=== PATIENT | male | born 1980 | race Caucasian/White ===

== ENCOUNTER 2017-01-25 18:58 | Emergency (ER) | payer OTHER ==
[~2017-01-25] VITALS: Ht 185.4 cm; Wt 117.2 kg
[~2017-01-25 18:58] MED LIST: ATENOLOL50 MG PO; BACTRIM DS1 TAB PO; CLEOCIN300 MG PO; CLINDAMYCIN300 M1 PO; FLEXERIL OR; LISINOPRIL10 MG PO; LORTAB 10-325 M1 TAB PO; LORTAB 5/3255 MG PO; NAPROSYN500 MG OR; NAPROSYN500 MG PO; NO MEDS; PRILOSEC10 MG PO
[2017-01-25] MEDS ORDERED: TORADOL PO (20:00)
[2017-01-25 20:27] VITALS: BP 125/78
== END 2017-01-25 20:27 | disposition home or self-care (01) | DRG 563 ==
LOC: ED 18:58
DX: S93.601A Unspecified sprain of right foot, initial encounter (principal); X50.1XXA Overexertion from prolonged static or awkward postures, initial encounter; Y93.01 Activity, walking, marching and hiking; Y92.009 Unspecified place in unspecified non-institutional (private) residence as the place of occurrence of the external cause

== ENCOUNTER 2017-04-13 22:44 | Emergency (ER) | payer SELFPAY ==
[~2017-04-13] VITALS: Ht 185.4 cm; Wt 108.4 kg
[~2017-04-13 22:44] MED LIST changes: +TORADOL PO
[2017-04-13] MEDS ORDERED: ANUSOL-HC25 MG RE (23:21)
[2017-04-13] MEDS ORDERED: XYLOCAINE G5 ML/TUBE EX (23:21)
[2017-04-13] MEDS ORDERED: MIRALAX3350 N1 PO (23:22)
[2017-04-13] MEDS ORDERED: LORTAB 1010 MG PO (23:22)
[2017-04-13 23:53] VITALS: BP 140/93
== END 2017-04-13 23:53 | disposition home or self-care (01) | DRG 395 ==
LOC: ED 22:44
DX: K64.9 Unspecified hemorrhoids (principal); F17.210 Nicotine dependence, cigarettes, uncomplicated; I10 Essential (primary) hypertension

== ENCOUNTER 2018-12-11 15:24 | Emergency (ER) | payer BC ==
[~2018-12-11] VITALS: Ht 185.4 cm; Wt 119.0 kg
[~2018-12-11 15:24] MED LIST changes: +ANUSOL-HC25 MG RE; +LORTAB 1010 MG PO; +MIRALAX3350 N1 PO; +XYLOCAINE G5 ML/TUBE EX
[2018-12-11 17:10] VITALS: BP 139/79
== END 2018-12-11 17:10 | disposition home or self-care (01) | DRG 563 ==
LOC: ED 15:24
DX: S92.512A Displaced fracture of proximal phalanx of left lesser toe(s), initial encounter for closed fracture (principal); I10 Essential (primary) hypertension; F17.200 Nicotine dependence, unspecified, uncomplicated; W22.09XA Striking against other stationary object, initial encounter; Y92.009 Unspecified place in unspecified non-institutional (private) residence as the place of occurrence of the external cause

== ENCOUNTER 2019-03-23 16:42 | Emergency (ER) | payer BC ==
[~2019-03-23] VITALS: Ht 185.4 cm; Wt 112.7 kg
[2019-03-23] MEDS ORDERED: TRAMADOL HYDROC50 MG PO ×2 (18:45→18:46)
[2019-03-23 18:51] VITALS: BP 145/91
== END 2019-03-23 19:01 | disposition home or self-care (01) | DRG 605 ==
LOC: ED 16:42
DX: S80.12XA Contusion of left lower leg, initial encounter (principal); I10 Essential (primary) hypertension; W20.8XXA Other cause of strike by thrown, projected or falling object, initial encounter; Y93.89 Activity, other specified

== ENCOUNTER 2020-02-10 13:34 | Emergency (ER) | payer BC ==
[~2020-02-10] VITALS: Ht 185.4 cm; Wt 110.0 kg
[~2020-02-10 13:34] MED LIST changes: +TRAMADOL HYDROC50 MG PO
[2020-02-10] MEDS ORDERED: ULTRAM50 MG PO (15:26)
[2020-02-10] MEDS ORDERED: MOTRIN800 MG PO (15:26)
[2020-02-10] MEDS ORDERED: FLEXERIL5 M1 PO (15:26)
[2020-02-10 15:33] VITALS: BP 140/92
== END 2020-02-10 15:38 | disposition home or self-care (01) | DRG 563 ==
LOC: ED 13:34
DX: S39.012A Strain of muscle, fascia and tendon of lower back, initial encounter (principal); I10 Essential (primary) hypertension; F17.210 Nicotine dependence, cigarettes, uncomplicated; X58.XXXA Exposure to other specified factors, initial encounter; Y93.83 Activity, rough housing and horseplay

== ENCOUNTER 2020-06-15 20:47 | Emergency (ER) | payer BC ==
[~2020-06-15 20:47] MED LIST changes: +FLEXERIL5 M1 PO; +MOTRIN800 MG PO; +ULTRAM50 MG PO
== END 2020-06-15 21:10 | disposition home or self-care (01) | DRG 951 ==
LOC: ED 20:47 → LWOBS 21:10
DX: Z53.21 Procedure and treatment not carried out due to patient leaving prior to being seen by health care provider (principal)

== ENCOUNTER 2020-06-23 00:43 | Emergency (ER) | payer BC ==
[~2020-06-23] VITALS: Ht 182.9 cm; Wt 121.6 kg
[2020-06-23 01:43] LABS: HEMOGLOBIN 15.3 g/dl (14.0-18.0); IMMATURE GRANULOCYTES 0.9 % (0.0-5.0); MEAN CELL VOLUME 94.2 fL CALC (80.0-100.0); MEAN CORPUSCULAR HGB 30.7 pG CALC (26.0-32.0); MEAN CORPUSCULAR HGB CONC 32.6 g/dL CAL (32.0-36.0); NEUT# 4.21 thou/uL (1.82-7.42); RED BLOOD COUNT 4.99 mill/uL (4.70-6.10); RED CELL DISTRI WIDTH 12.5 % (11.5-15.5)
[2020-06-23 01:58] LABS: ALBUMIN 4.4 g/dL (3.2-5.0); ALKALINE PHOSPHATASE 44 u/l (38-126); AMYLASE 57 u/l (30-110); ANION GAP 11 (6-22 (CALC)); BILIRUBIN, TOTAL 0.5 mg/dL (0.0-1.4); BUN 17 mg/dL (9-20); BUN/CREATININE RATIO 19 (12-20 (CALC)); CARBON DIOXIDE 28 mmol/l (22-30); CHLORIDE 102 mmol/l (95-108); CREATININE 0.9 mg/dL (0.7-1.3); GFR > 60 ML/MIN (>=60 (CALC)); GFR FOR AFR.AMER. > 60 ML/MIN (>=60 (CALC)); LIPASE 92 u/l (23-300); SGOT/AST 23 u/l (17-59); SODIUM 137 mmol/l (137-146); TOTAL PROTEIN 7.4 g/dL (6.3-8.2)
[2020-06-23 02:10] LABS: MYOGLOBIN 29 ng/mL (0 - 121)
[2020-06-23 02:15] LABS: URINE BILIRUBIN - DIPSTICK NEGATIVE (NEGATIVE); URINE BLOOD DIPSTICK NEGATIVE (NEGATIVE); URINE COLOR YELLOW; URINE GLUCOSE - DIPSTICK NEGATIVE (NEGATIVE); URINE KETONE NEGATIVE (NEGATIVE); URINE LEUK ESTERASE NEGATIVE (NEGATIVE); URINE NITRITE - DIPSTICK NEGATIVE (Negative); URINE PROTEIN - DIPSTICK NEGATIVE (NEG-TRACE); URINE SPECIFIC GRAVITY 1.025
[2020-06-23] MEDS ORDERED: CYCLOBENZAPRINE10 MG PO (03:31)
[2020-06-23] MEDS ORDERED: NAPROXEN500 MG PO (03:31)
[2020-06-23 03:40] VITALS: BP 148/79
== END 2020-06-23 03:40 | disposition home or self-care (01) | DRG 556 ==
LOC: ED 00:43
PROVIDERS: Emergency Medicine
DX: M79.10 Myalgia, unspecified site (principal); N28.89 Other specified disorders of kidney and ureter; I10 Essential (primary) hypertension; F17.210 Nicotine dependence, cigarettes, uncomplicated
CPT/HCPCS: Q9967; S0164

== ENCOUNTER 2021-05-23 04:25 | Observation (INO) | payer BC ==
[~2021-05-23] VITALS: Ht 185.4 cm; Wt 123.0 kg
[~2021-05-23 04:25] MED LIST changes: +CYCLOBENZAPRINE10 MG PO; +NAPROXEN500 MG PO
--- NOTE | 2021-05-23 04:26 | NUR ---
AMBULATED TO ROOM
[2021-05-23 04:47] LABS: HEMATOCRIT 51.9 % (39.0-50.0); HEMOGLOBIN 16.9 g/dl (14.0-18.0); IMMATURE GRANULOCYTES 0.4 % (0.0-5.0); MEAN CELL VOLUME 96.1 fL CALC (80.0-100.0); MEAN CORPUSCULAR HGB 31.3 pG CALC (26.0-32.0); MEAN CORPUSCULAR HGB CONC 32.6 g/dL CAL (32.0-36.0); NEUT# 6.84 thou/uL (1.82-7.42); RED BLOOD COUNT 5.4 mill/uL (4.70-6.10); RED CELL DISTRI WIDTH 12.4 % (11.5-15.5)
[2021-05-23] MEDS ORDERED: MEDICAL MARIJUANA (04:49)
[2021-05-23 05:03] LABS: ALBUMIN 4.8 g/dL (3.2-5.0); ALKALINE PHOSPHATASE 58 u/l (38-126); AMYLASE 58 u/l (30-110); ANION GAP 19 (6-22 (CALC)); BILIRUBIN, TOTAL 0.4 mg/dL (0.0-1.4); BUN 14 mg/dL (9-20); BUN/CREATININE RATIO 14 (12-20 (CALC)); CARBON DIOXIDE 23 mmol/l (22-30); CHLORIDE 105 mmol/l (95-108); GFR > 60 ML/MIN (>=60 (CALC)); GFR FOR AFR.AMER. > 60 ML/MIN (>=60 (CALC)); LIPASE 81 u/l (23-300); SGOT/AST 25 u/l (17-59); SODIUM 143 mmol/l (137-146); TOTAL PROTEIN 8.3 g/dL (6.3-8.2)
[2021-05-23 05:10] LABS: URINE BILIRUBIN - DIPSTICK NEGATIVE (NEGATIVE); URINE BLOOD DIPSTICK TRACE-INTACT (NEGATIVE); URINE COLOR YELLOW; URINE GLUCOSE - DIPSTICK NEGATIVE (NEGATIVE); URINE KETONE TRACE mg/dL (NEGATIVE); URINE LEUK ESTERASE NEGATIVE (NEGATIVE); URINE PROTEIN - DIPSTICK TRACE mg/dL (NEG-TRACE); URINE SPECIFIC GRAVITY >=1.030
[2021-05-23 05:11] LABS: URINE NITRITE - DIPSTICK NEGATIVE (Negative)
[2021-05-23 05:15] LABS: MYOGLOBIN 40 ng/mL (0 - 121)
--- NOTE | 2021-05-23 06:06 | NUR ---
Reassessment of patient completed. No distress noted.
--- NOTE | 2021-05-23 07:06 | NUR ---
ASSUMED CARE BY THIS RN
--- NOTE | 2021-05-23 07:07 | NUR ---
ASSUMED CARE BY THIS RN
--- NOTE | 2021-05-23 11:59 | NUR ---
REPORT CALLED TO [place] FOR TRANSFER TO ROOM 278 VIA WHEELCHAIR.
--- NOTE | 2021-05-23 12:18 | NUR ---
PT ARRIVED TO THE FLOOR AT THIS TIME VIA AMBULANCE AND ONE PERSON FROM THE ER. PT AMBULATORY TO THE BATHROOM INDEPENDANTLY, AND BACK TO THE BED. VS OBTAINED AND ARE STABLE. PT ALERT AND ORIENTATED. ROOM, RIGHTS AND RESPONSIBILITIES REVIEWED. PT STATES UNDERSTANDING. PT REQUESTING TO GO OUTSIDE AND SMOKE. EDUCATION OF NO SMOKING ON CAMPUS GIVEN. STATES UNDERSTANDING. MD IN ROOM ASSESS PATIENT AT THIS TIME
[2021-05-23 12:21] VITALS: BP 136/96
--- NOTE | 2021-05-23 13:51 | NUR ---
DR. NAVARRO IN TO SEE PT. PT TO HAVE SURGERY IN AM AT 0900. ADVANCED TO A CLEAR LIQUID DIET, AND NPO AT MIDNIGHT. WILL NOTIFY OR TEAM OF PROCEDURE FOR 05/24/21 AT 0900.
[2021-05-23 15:15] VITALS: BP 145/88
--- NOTE | 2021-05-23 18:00 | NUR ---
PT WILLING TO SIGN CONSENT FOR PROCEDURE IN AM. FAMILY AT BS. DENIES NEEDS OR CONCERNS. INSTRUCTED PT TO CALL FOR ASSISTANCE, VERBALIZES UNDERSTANDING.
[2021-05-23 19:00] VITALS: BP 141/87
--- NOTE | 2021-05-23 21:38 | NUR ---
PATIENT RESTING IN BED AT THIS TIME-AWAKE ALERT AND ORIENTEDX3. JUST RETURNING FROM BR TO VOID-DENIES ANY DIFFICULTY WITH URINATION-STEADY ON HIS FEET. IVF NS PATENT AND INFUSING VIA RAC SITE AT 100CC/HR. FLAGYL HUNG ORDERED. PATIENT TOLERATING PO FLUIDS WELL-DENIES ANY NAUSEA. INSTRUCTED NPO AFTER MIDNIGHT FOR OR TOMORROW. VERBALIZES UNDERSTANDING. MEDICATED WITH MORPHINE 2MG IVP FOR RIGHT SIDE ABD PAIN-5/10 ON PAIN SCALE. MEDICATED FOR SLEEP WITH ATIVAN 0.5MG IVP. SAFETY PRECAUTIONS REINFORCED. CALL LIGHT IN REACH. WILL CONT TO MONITOR.
[2021-05-24] VITALS (9 sets, daily range): BP systolic 122–150; BP diastolic 77–86
--- NOTE | 2021-05-24 00:44 | NUR ---
PATIENT RESTING IN BED AT THIS TIME WITH O2 VIA NASAL CANNULA INPLACE-PATIENT USUALLY USES C-PAP AT HOME BUT DOESN'T HAVE IT HERE. EYES ARE CLOSED. RESPS ARE EVEN AND UNLABORED. IVF PATENT AND INFUSING VIA RAC AT 100CC/HR/. PATIENT IS NOW NPO FOR OR THIS MORNING. CALL LIGHT IN REACH. WILL CONT TO MONITOR.
--- NOTE | 2021-05-24 03:39 | NUR ---
PATIENT RESTING IN BED WITH O2 VIA NASAL CANNULA IN PLACE. EYES ARE CLOSED. RESPS ARE NOISY-PATIENT WEARS C-PAP AT HOME. NPO FOR OR TODAY. IVF PATENT AND INFUSING VIA RAC SITE AT 100CC/HR. CALL LIGHT IN REACH. WILL CONT TO MONITOR.
--- NOTE | 2021-05-24 05:26 | NUR ---
PATIENT UP AND SHOWERED WITH ANTISEPTIC SCRUB-RESTING IN BED AT THIS TIME. REAMINS NPO SINCE MIDNIGHT. CONSENT FOR OR HAS BEEN SIGNED. IVF NS PATENT AND INFUSING VIA RAC SITE AT 1OOCC/HR. MEDICATED FOR RUQ PAIN WITH MORPHINE 2MG IVP ORDERED. CALL LIGHT IN REACH. WILL CONT TO MONITOR.
--- NOTE | 2021-05-24 07:30 | NUR ---
ASSESSMENT DONE. PATIENT IS ALERT AND ORIENT X3. RESPS EVEN AND UNLABORED. PATIENT IS NPO. IVF INFUSING WELL PER ORDER. DISCUSS POC AND PATIENT VERBALIZED UNDERSTANDING. PATIENT DENIES PAIN. CALL LIGHT IN REACH.
[2021-05-24] MEDS ORDERED: ADDERALL XR25 MG PO (08:06)
[2021-05-24] MEDS ORDERED: ATENOLOL25 MG PO (08:06)
--- NOTE | 2021-05-24 08:22 | NUR ---
PATIENT WENT TO OR VIA STRETCHER BY ELIZABETH WELCH.
--- NOTE | 2021-05-24 11:43 | NUR ---
PATIENT CAME FROM OR VIA STRETCHER BY ELIZABETH WELCH AND REPORT RECEIVED FROM HER. PATIENT STATED PAIN IN ABD 10 BUT DENIES PAIN MEDICATIONS. PO FLUIDS PROVIDED. X4 INCISION IN ABD CDI. CALL LIGHT IN REACH.
[2021-05-24] MEDS ORDERED: TORADOL PO (12:21)
--- NOTE | 2021-05-24 14:52 | NUR ---
PO FLUIDS PROVIDED AND PATIENT IS TOLERATING WELL. PATIENT STATED HE HAS A HEADACHE. MEDICATED PATIENT WITH TYLENOL. PATIENT DENIES ANY OTHER NEEDS. CALL LIGHT IN REACH.
--- NOTE | 2021-05-24 16:23 | NUR ---
PATIENT STATED THE PAIN MEDICATION HELPED. PATIENT STATED HE READY TO BE DC. TOLD HIM I WILL ORDER HIS DINNER TRAY. PATIENT VERBALIZED UNDERSTANDING. CALL LIGHT IN REACH.
--- NOTE | 2021-05-24 17:17 | NUR ---
Discharge instructions given. Patient verbalizes understanding of same. Discharged in stable condition via Wheelchair to Home with spouse. All belongings sent with pt.
== END 2021-05-24 17:17 | disposition home or self-care (01) | DRG 419 ==
LOC: ED 04:25 → ED-I 10:20 → ED 10:38 → MS2 10:39
PROVIDERS: Family Medicine; ADMIT Internal Medicine; ATTEND Internal Medicine
PROC: 0FT44ZZ Resection of Gallbladder, Percutaneous Endoscopic Approach (ICD-10-PCS; principal; 2021-05-24)
PROC: BF10YZZ Fluoroscopy of Bile Ducts using Other Contrast (ICD-10-PCS; 2021-05-24)
DX: K80.12 Calculus of gallbladder with acute and chronic cholecystitis without obstruction (principal); I10 Essential (primary) hypertension; G89.29 Other chronic pain; F98.8 Other specified behavioral and emotional disorders with onset usually occurring in childhood and adolescence; F17.200 Nicotine dependence, unspecified, uncomplicated; Z79.899 Other long term (current) drug therapy; Z20.822 Contact with and (suspected) exposure to COVID-19
CPT/HCPCS: G0378; J0131; J1100; J1610; J2060; Q9967; S0164

== ENCOUNTER 2023-04-24 15:26 | Emergency (ER) | payer BC ==
[2023-04-24] VITALS (7 sets, daily range): BP systolic 138–170; BP diastolic 100–112
[~2023-04-24] VITALS: Ht 185.4 cm; Wt 90.7 kg
[~2023-04-24 15:26] MED LIST changes: +ADDERALL XR25 MG PO; +ATENOLOL25 MG PO; +MEDICAL MARIJUANA
[2023-04-24 17:17] LABS: BASO% 0.3 % (0-3); EOS% 1.2 % (0-8); HEMATOCRIT 49.3 % (39.0-50.0); HEMOGLOBIN 16.6 g/dl (14.0-18.0); IMMATURE GRANULOCYTES 0.2 % (0.0-5.0); LYMPH% 26.4 % (15-41); MEAN CELL VOLUME 96.1 fL CALC (80.0-100.0); MEAN CORPUSCULAR HGB 32.4 pG CALC (26.0-32.0); MEAN CORPUSCULAR HGB CONC 33.7 g/dL CAL (32.0-36.0); MONO% 12.3 % (2-13); NEUT# 3.5 thou/uL (1.82-7.42); NEUT% 59.6 % (42-76); RED BLOOD COUNT 5.13 mill/uL (4.70-6.10); RED CELL DISTRI WIDTH 12.4 % (11.5-15.5)
[2023-04-24 17:30] LABS: ALBUMIN 4.7 g/dL (3.2-5.0); ALKALINE PHOSPHATASE 56 u/l (38-126); ANION GAP 12 (6-22 (CALC)); BUN 13 mg/dL (9-20); BUN/CREATININE RATIO 14 (12-20 (CALC)); CARBON DIOXIDE 22 mmol/l (22-30); CHLORIDE 106 mmol/l (95-108); CREATININE 0.9 mg/dL (0.7-1.3); GFR FOR AFR.AMER. > 60 ML/MIN (>=60 (CALC)); GFR OTHER RACES > 60 ML/MIN (>=60 (CALC)); LIPASE 59 u/l (23-300); POTASSIUM 4.1 mmol/l (3.5-5.1); SGOT/AST 35 u/l (17-59); SODIUM 136 mmol/l (137-146); TOTAL PROTEIN 8.3 g/dL (6.3-8.2)
[2023-04-24 17:31] LABS: BILIRUBIN, TOTAL 0.6 mg/dL (0.2-1.3)
[2023-04-24 18:14] LABS: URINE BLOOD DIPSTICK Trace-intact (NEGATIVE); URINE GLUCOSE - DIPSTICK Negative (NEGATIVE); URINE KETONE 15 mg/dL (NEGATIVE); URINE LEUK ESTERASE Negative (NEGATIVE); URINE NITRITE - DIPSTICK Negative (Negative); URINE PH 5.5 (4.5-8.0); URINE PROTEIN - DIPSTICK 30 mg/dL (NEG-TRACE); URINE SPECIFIC GRAVITY >=1.030; URINE UROBILINOGEN - DIPSTICK 0.2 E.U./dL (0.2)
[2023-04-24 18:18] LABS: URINE COLOR Yellow
[2023-04-24 18:19] LABS: URINE RBC 0-2 RBC/hpf (0-5); URINE WBC 0-2 WBC/hpf (0-5)
[2023-04-24] MEDS ORDERED: PROTONIX40 M2 PO (19:08)
[2023-04-24] MEDS ORDERED: TRAMADOL HYDROC50 M1 PO (19:10)
[2023-04-27] MEDS ORDERED: LEXAPRO (09:06)
[2023-04-27] MEDS ORDERED: LIDOCAINE21 MT (09:28)
[2023-04-28] MEDS ORDERED: LISINOP/HCTZ1 TA1 PO (11:58)
[2023-04-28] MEDS ORDERED: LORTAB 5/3255 MG PO (12:02)
[2023-04-28] MEDS ORDERED: CVS IBUPROFEN200 M3 PO (12:03)
== END 2023-04-24 19:20 | disposition home or self-care (01) | DRG 392 ==
LOC: ED 15:26
PROVIDERS: Nurse Practitioner Family
DX: K21.9 Gastro-esophageal reflux disease without esophagitis (principal); I10 Essential (primary) hypertension; F17.200 Nicotine dependence, unspecified, uncomplicated

== ENCOUNTER 2023-04-29 06:55 | Day surgery (SDC) | payer BC ==
[~2023-04-29] VITALS: Ht 180.3 cm; Wt 116.6 kg
[~2023-04-29 06:55] MED LIST changes: +CVS IBUPROFEN200 M3 PO; +LEXAPRO; +LIDOCAINE21 MT; +LISINOP/HCTZ1 TA1 PO; +PROTONIX40 M2 PO; +TRAMADOL HYDROC50 M1 PO
[2023-04-29 09:18] VITALS: BP 143/86
[2023-04-29] MEDS ORDERED: PROTONIX40 M2 PO (09:22)
[2023-04-29] MEDS ORDERED: CARAFATE1 GM PO (09:23)
== END 2023-04-29 09:32 | disposition home or self-care (01) | DRG 381 ==
LOC: ENDO 06:55 → ORM 08:00 → ENDO 09:32
PROVIDERS: ATTEND Surgery
PROC: 0DB48ZX Excision of Esophagogastric Junction, Via Natural or Artificial Opening Endoscopic, Diagnostic (ICD-10-PCS; principal; 2023-04-29)
PROC: 0DB78ZX Excision of Stomach, Pylorus, Via Natural or Artificial Opening Endoscopic, Diagnostic (ICD-10-PCS; 2023-04-29)
PROC: 0DB38ZX Excision of Lower Esophagus, Via Natural or Artificial Opening Endoscopic, Diagnostic (ICD-10-PCS; 2023-04-29)
DX: K22.10 Ulcer of esophagus without bleeding (principal); K29.60 Other gastritis without bleeding; K44.9 Diaphragmatic hernia without obstruction or gangrene; C64.9 Malignant neoplasm of unspecified kidney, except renal pelvis; I10 Essential (primary) hypertension; F41.9 Anxiety disorder, unspecified